=== PATIENT | male | born 1950 | race Caucasian/White ===

== ENCOUNTER 2024-02-11 15:36 | Emergency (ER) | payer MEDICARE, OTHER ==
[~2024-02-11] VITALS: Ht 170.2 cm; Wt 62.1 kg
[2024-02-11 16:22] VITALS: TEMP 97.9
[2024-02-11 19:10] VITALS: PULSE 86; RESP 16
[2024-02-11 20:03] VITALS: BP 145/76; PULSE 86; RESP 16; TEMP 97.9; O2SAT 97
== END 2024-02-11 19:45 | disposition home or self-care (01) ==
LOC: ER 17:42
DX: S00.83XA Contusion of other part of head, initial encounter (principal); W17.89XA Other fall from one level to another, initial encounter; Y92.89 Other specified places as the place of occurrence of the external cause; I10 Essential (primary) hypertension; D64.9 Anemia, unspecified; E78.5 Hyperlipidemia, unspecified; G23.1 Progressive supranuclear ophthalmoplegia [Steele-Richardson-Olszewski]; M62.58 Muscle wasting and atrophy, not elsewhere classified, other site; K21.9 Gastro-esophageal reflux disease without esophagitis
CPT/HCPCS: 70450; 72125; 99283